=== PATIENT | male | born 1975 | race Caucasian/White ===

== ENCOUNTER → 2020-08-16 | Outpatient (CLI) | payer BC, OTHER ==
[~2020-08-16] MED LIST: AUGMENTIN 875875 MG PO; DOXYCYCLINE 10100 M1 PO; FLONASE; GARLIC1 EACH PO; HYDROXYZINE HCL25 M2 PO; LISINOPRIL10 MG PO; MEDROL DOSPAK21 TAB PO; NASONEX17 GM; NORVASC10 MG PO; PREDNISONE 10 M10 MG PO; SINGULAIR 10 MG10 M1 PO; STRESS B1 EAC1 PO; probiotics
== END ==
LOC: LAB 11:07
PROVIDERS: ATTEND Nurse Practitioner
DX: Z20.828 Contact with and (suspected) exposure to other viral communicable diseases (principal)

== ENCOUNTER → 2020-12-18 | Outpatient (CLI) | payer BC | LOC: LAB 09:17 | PROVIDERS: ATTEND Family Medicine | DX: Z20.822 Contact with and (suspected) exposure to COVID-19 (principal) ==